=== PATIENT | male | born 1950 | race Caucasian/White ===

== ENCOUNTER 2017-08-23 11:56 | Emergency (ER) | payer MEDICARE ==
[~2017-08-23] VITALS: Ht 175.3 cm; Wt 84.8 kg
[2017-08-23] MEDS ORDERED: INDOMETHACIN75 MG PO (12:34)
[2017-08-23] MEDS ORDERED: DICLOFENAC SODI75 MG PO (12:34)
[2017-08-23] MEDS ORDERED: ACYCLOVIR400 MG PO (12:34)
[2017-08-23] MEDS ORDERED: INDOMETHACIN50 MG PO (13:05)
== END 2017-08-23 13:19 | disposition home or self-care (01) ==
LOC: ED 11:56
DX: M70.21 Olecranon bursitis, right elbow (principal); I10 Essential (primary) hypertension; Z86.14 Personal history of Methicillin resistant Staphylococcus aureus infection; Z88.0 Allergy status to penicillin; Z79.899 Other long term (current) drug therapy
CPT/HCPCS: 73080; 99283